=== PATIENT | male | born 1945 ===

== ENCOUNTER 2025-05-20 12:15 | Inpatient (IN) | payer OTHER ==
[~2025-05-20] VITALS: Ht 177.8 cm; Wt 98.9 kg
[2025-05-20] MEDS ORDERED: ARBLI10 MG/1 ML (12:55)
[2025-05-20] MEDS ORDERED: INTESTINEX680 M1 (12:56)
[2025-05-20 12:59] VITALS: BP 152/76
[2025-05-26 09:05] LABS: RH POSITIVE
[2025-05-26] MEDS ORDERED: RINGERS SOLUTION,LACTATED 1,000 ML IV SCH (15:15)
[2025-05-26] MEDS ORDERED: CEFTRIAXONE SODIUM 2,000 MG VIAL IV ONE (15:15)
[2025-05-26] MEDS ORDERED: ONDANSETRON HCL 2 MG/ML VIAL IV PRN (15:15)
[2025-05-26] MEDS ORDERED: MORPHINE SULFATE 4 MG/ML CARTRIDGE IV PRN (15:15)
[2025-05-26] MEDS ORDERED: OxyCODONE HCL 5 MG TABLET (ROXICODONE) PO PRN (15:15)
[2025-05-26] MEDS ORDERED: DEXTROSE 50 % IN WATER 0.5 G/ML VIAL IV PRN (15:15)
[2025-05-26] MEDS ORDERED: METRONIDAZOLE/SODIUM CHLORIDE 500 MG/100 ML PIGGYBACK IV ONE (15:30)
[2025-05-26] MEDS ORDERED: ENALAPRILAT DIHYDRATE 1.25 MG/ML VIAL IV PRN (16:30)
[2025-05-26] MEDS ORDERED: SUGAMMADEX SODIUM 200 MG/2 ML VIAL IV ONE (16:45)
[2025-05-26] MEDS ORDERED: GABAPENTIN 300 MG CAPSULE PO SCH (17:00)
[2025-05-26] MEDS ORDERED: MORPHINE SULFATE 4 MG/ML VIAL IV ONE ×2 (17:25→18:25)
[2025-05-26] MEDS ORDERED: ACETAMINOPHEN 500 MG GEL..CAP PO SCH (20:00)
[2025-05-26] MEDS ORDERED: FAMOTIDINE/PF 20 MG/2 ML VIAL IV PUSH SCH (21:00)
[2025-05-26 21:30] LABS: BASO % 0.1 % (0.1-1.2); EOS # 0.00 (0.04-0.54); EOS % 0.0 % (0.7-7.0); LYMPH # 0.94 (1.18-3.74); LYMPH % 6.1 % (19.3-53.1); MEAN PLATELET VOLUME 9.30 fl (9.4-12.4); MONO # 1.61 (0.24-0.82); MONO % 10.5 % (4.7-12.5); NEUT # 12.70 (1.56-6.13); NEUT % 82.8 % (34.0-71.1); RED CELL DISTRIBUTION WIDTH 14.8 % (11.6-14.4)
[2025-05-26 21:58] LABS: BUN CREA RATIO 19.0 (7.0-25.0); CREATININE SERUM 0.74 mg/dL (0.70-1.30); GFR 102.56; OSMOLALITY SERUM 284.0 MOSM/KG (275-295)
[2025-05-26 22:00] LABS: GLUCOSE FASTING 201.0 mg/dL (65-100)
[2025-05-27 03:47] VITALS: BP 132/63; O2SAT 96
[2025-05-27 06:58] LABS: BASO % 0.2 % (0.1-1.2); EOS # 0.00 (0.04-0.54); EOS % 0.0 % (0.7-7.0); LYMPH # 1.73 (1.18-3.74); LYMPH % 11.3 % (19.3-53.1); MEAN PLATELET VOLUME 9.90 fl (9.4-12.4); MONO # 2.11 (0.24-0.82); NEUT # 11.33 (1.56-6.13); NEUT % 74.3 % (34.0-71.1); RED CELL DISTRIBUTION WIDTH 14.8 % (11.6-14.4)
[2025-05-27 07:04] LABS: MONO % 13.8 % (4.7-12.5)
[2025-05-27 07:32] LABS: BUN CREA RATIO 19.0 (7.0-25.0); CREATININE SERUM 0.68 mg/dL (0.70-1.30); GFR 113.07; GLUCOSE FASTING 162.0 mg/dL (65-100); OSMOLALITY SERUM 279.0 MOSM/KG (275-295)
[2025-05-27 08:00] VITALS: BP 144/70; O2SAT 90; O2SAT 95
[2025-05-27] MEDS ORDERED: LOSARTAN POTASSIUM 100 MG TABLET PO SCH (09:00)
[2025-05-27 16:57] VITALS: BP 170/93; O2SAT 99
[2025-05-27] MEDS ORDERED: ENOXAPARIN SODIUM 40 MG/0.4 ML SYRINGE SUBCUTANEO SCH (17:00)
[2025-05-28 02:24] VITALS: BP 149/67; O2SAT 96
[2025-05-28 09:00] VITALS: BP 150/80; O2SAT 98
[2025-05-28] MEDS ORDERED: ENOXAPARIN SODIUM 40 MG/0.4 ML SYRINGE SUBCUTANEO SCH (09:00)
[2025-05-28] MEDS ORDERED: INTESTINEX680 M1 PO (16:16)
[2025-05-28] MEDS ORDERED: HYOSCYAMINE0.125 M1 SL (16:16)
[2025-05-28 16:22] VITALS: BP 164/76; O2SAT 99
== END 2025-05-28 17:56 | disposition home or self-care (01) | DRG 330 ==
LOC: SURG 05-26 10:12 → O/R 05-26 10:12 → SURH 05-26 12:15 → SURG 05-26 19:31
PROVIDERS: ADMIT Surgery; ATTEND Surgery
PROC: 0DBP4ZZ Excision of Rectum, Percutaneous Endoscopic Approach (ICD-10-PCS; 2025-05-26)
PROC: 07BB4ZZ Excision of Mesenteric Lymphatic, Percutaneous Endoscopic Approach (ICD-10-PCS; 2025-05-26)
PROC: 0DJD8ZZ Inspection of Lower Intestinal Tract, Via Natural or Artificial Opening Endoscopic (ICD-10-PCS; 2025-05-26)
PROC: 0DTN4ZZ Resection of Sigmoid Colon, Percutaneous Endoscopic Approach (ICD-10-PCS; principal; 2025-05-26 16:45)
PROC: 4A12X4Z Monitoring of Cardiac Electrical Activity, External Approach (ICD-10-PCS; 2025-05-27)
DX: C18.7 Malignant neoplasm of sigmoid colon (principal); K62.5 Hemorrhage of anus and rectum; K57.30 Diverticulosis of large intestine without perforation or abscess without bleeding; R59.0 Localized enlarged lymph nodes; G47.33 Obstructive sleep apnea (adult) (pediatric); I10 Essential (primary) hypertension; E78.5 Hyperlipidemia, unspecified

== ENCOUNTER 2025-07-03 07:20 | Day surgery (SDC) | payer OTHER ==
[~2025-07-03 07:20] MED LIST: ARBLI10 MG/1 ML; HYOSCYAMINE0.125 M1 SL; INTESTINEX680 M1; INTESTINEX680 M1 PO
[2025-07-03] MEDS ORDERED: TRAM1TAB98 PO (14:19)
[2025-07-03] MEDS ORDERED: HEPARIN SODIUM,PORCINE 5,000 UNITS/ML VIAL IV ONE (14:45)
[2025-07-03] MEDS ORDERED: LIDOCAINE HCL 1%/EPINEPHRINE 20ML VIAL IJ ONE (14:45)
[2025-07-03] MEDS ORDERED: BUPIVACAINE HCL 30 ML VIAL IV ONE (14:45)
[2025-07-03] MEDS ORDERED: CEFAZOLIN SODIUM 1,000 MG VIAL IV ONE (14:45)
== END 2025-07-03 18:35 | disposition home or self-care (01) ==
LOC: CIR.AMB 07:20
PROVIDERS: ATTEND Surgery
DX: C18.7 Malignant neoplasm of sigmoid colon (principal); Z91.013 Allergy to seafood; Z88.6 Allergy status to analgesic agent
CPT/HCPCS: 36561; C1751